=== PATIENT | female | born 1975 | race Caucasian/White ===

== ENCOUNTER 2017-07-28 18:31 | Outpatient (CLI) | payer MEDICAID | END 2017-07-28 18:32 | disposition short-term general hospital (02) | LOC: EMS 18:31 | PROVIDERS: ATTEND Surgery | DX: R73.09 Other abnormal glucose (principal); R11.10 Vomiting, unspecified | CPT/HCPCS: A0425; A0427 ==

== ENCOUNTER 2017-08-07 06:28 | Outpatient (CLI) | payer MEDICAID | END 2017-08-07 06:29 | disposition critical access hospital (66) | LOC: EMS 06:28 | PROVIDERS: ATTEND Surgery | DX: R53.1 Weakness (principal); R10.9 Unspecified abdominal pain | CPT/HCPCS: A0425; A0427 ==

== ENCOUNTER 2017-08-07 06:47 | Inpatient (IN) | payer MEDICAID ==
[2017-08-07] MEDS ORDERED: ONDANSETRON 4 MG/2 ML VIAL IVP STA (06:53)
[2017-08-07] MEDS ORDERED: SODIUM CHLORIDE 0.9% 1,000 ML IV ONE ×3 (06:53→09:00)
[2017-08-07 07:04] LABS: VBG PH 6.821 (7.31-7.41)
[2017-08-07 07:05] LABS: VBG BASE EXCESS -29.8 mmol/L (-2 - +2); VBG PCO2 24.8 mmHg (41-51); VBG PO2 60.3 mmHg (25-47); VBG TOTAL CO2 4.7 mmol/L (24-29)
[2017-08-07 07:18] LABS: BASOPHILS % (AUTO) 0.7 %; EOSINOPHILS % (AUTO) 0.1 %; LYMPHOCYTES % (AUTO) 10.9 %; MEAN CORPUSCULAR HEMOGLOBIN 33.7 pg (27.0-31.0); MEAN CORPUSCULAR VOLUME 112.2 fL (81.0-99.0); MEAN PLATELET VOLUME 7.5 fL (7.9-10.8); MONOCYTES % (AUTO) 11.7 %; NEUTROPHILS % (AUTO) 76.6 %; PLT - PLATELET COUNT 333 10^3/uL (130-450); RED BLOOD COUNT 4.15 10^6/uL (4.20-5.40); RED CELL DISTRIBUTION WIDTH 16.8 % (12.0-15.0); WHITE BLOOD COUNT 13.9 x10^3/uL (4.8-10.8)
[2017-08-07 07:23] LABS: ABNORMAL LYMPHS % (MANUAL) 0 %
[2017-08-07 07:30] LABS: ALBUMIN 4.5 g/dL (3.2-5.5); ALBUMIN/GLOBULIN RATIO 1.5 (1.0-2.2); ALKALINE PHOSPHATASE 122 IU/L (42-121); ALT ALANINE AMINOTRANSFERASE 40 IU/L (10-60); AST ASPARTATE AMINOTRANSFERASE 49 IU/L (10-42); BILIRUBIN,TOTAL 1.4 mg/dL (0.2-1.0); BUN - BLOOD UREA NITROGEN 20 mg/dL (6-20); CARBON DIOXIDE - CO2 < 6 mmol/L (21-32); CHLORIDE 103 mmol/L (101-111); CREATININE 1.2 mg/dL (0.4-1.0); GFR - MDRD 50 (>89); GLUCOSE 571 mg/dL (70-100); LIPASE 22 U/L (22-51); MAGNESIUM 2.4 mg/dL (1.7-2.8); PHOSPHORUS 5.4 mg/dL (2.5-4.6); SODIUM 134 mmol/L (135-145); TOTAL PROTEIN 7.6 g/dL (6.7-8.2)
[2017-08-07 07:31] LABS: BILIRUBIN,URINE NEGATIVE (NEGATIVE); GLUCOSE, URINE (UA) 500 mg/dL (NEGATIVE); KETONES,URINE (UA) >=80 mg/dL (NEGATIVE); LEUKOCYTE ESTERASE, URINE NEGATIVE (NEGATIVE); NITRITE,URINE NEGATIVE (NEGATIVE); OCCULT BLOOD,URINE TRACE-INTA (NEGATIVE); PH,URINE 5.5 PH (5.0-7.5); PROTEIN,URINE TRACE mg/dL (NEGATIVE); UROBILINOGEN,URINE 0.2 (NORMAL) E.U./dL (NORMAL)
[2017-08-07 07:34] LABS: CLARITY,URINE CLEAR (CLEAR); HCG UR QUAL NEGATIVE
[2017-08-07] MEDS ORDERED: INSULIN REGULAR HUMAN 100 UNIT/1 ML 10 ML MDV IVP STA (07:36)
[2017-08-07] MEDS ORDERED: INSULIN REGULAR HUMAN 100 UNIT in SODIUM CHLORIDE 0.9% 100ML 99 ML IV STA (07:36)
--- NOTE | 2017-08-07 07:37 | ED Physician Documentation ---
History of Present Illness - Stated complaint Stated Complaint: HYPERGLYCEMIA - Chief complaint Chief Complaint: General - Additonal information Additional information: hx from pt 42 f IDDM with hx DKA visiting locally and not taking her insulin as prescribed because she states the pharmacy will not fill it to ER with weakness NV and high blood sugar denies recent illness otherwise - no fever cough urinary sx etc denies preg no skin sores Review of Systems Constitutional: denies: Fever, Chills Cardiac: denies: Chest pain / pressure Respiratory: denies: Dyspnea, Cough GI: reports: Nausea, Vomiting : denies: Dysuria, Now EGA Skin: denies: Lesions Neurologic: reports: Generalized weakness PD PAST MEDICAL HISTORY - Past Medical History Endocrine/Autoimmune: Type 1 diabetes - Past Surgical History Past Surgical History: Yes General: 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 - Present Medications Home Medications: Ambulatory Orders Medication Instructions Recorded Confirmed Insulin Glargine [Lantus Solostar] 17 units SUBQ DAILY 08/07/17 08/07/17 Insulin Lispro [Humalog] 2 - 8 units SUBQ TIDWM 08/07/17 08/07/17 - Allergies Allergies/Adverse Reactions: Allergies Allergy/AdvReac Type Severity Reaction Status Date / Time No Known Drug Allergies Allergy Verified 08/07/17 06:54 - Social History Does the pt smoke?: Yes Smoking Status: Current every day smoker Does the pt drink ETOH?: No Does the pt have substance abuse?: No - Immunizations Immunizations are current?: Yes PD ED PE NORMAL - Vitals Vital signs reviewed: Yes - General General: Alert and oriented X 3, Other (thin) - HEENT HEENT: Other (dry, ketotic breath,) - Neck Neck: Supple, no meningeal sign - Cardiac Cardiac: RRR (tachy) - Respiratory Respiratory: No respiratory distress, Clear bilaterally - Abdomen Abdomen: Soft, Non tender - Derm Derm: Normal color - Extremities Extremities: Other (no foot ulcers, bandaid to each heel but no underlying open sore) - Neuro Neuro: Alert and oriented X 3 Results - Vitals Vitals: Vital Signs - 24 hr 08/07/17 08/07/17 06:50 07:47 Temperature 36.1 C L Heart Rate 107 H 118 H Respiratory 20 24 Rate Blood Pressure 157/77 H 159/71 H O2 Saturation 100 100 Oxygen O2 Source Room air - Labs Labs: Laboratory Tests 08/07/17 08/07/17 08/07/17 07:00 07:00 07:00 WBC 13.9 H RBC 4.15 L Hgb 14.0 Hct 46.6 MCV 112.2 H MCH 33.7 H MCHC 30.0 L RDW 16.8 H Plt Count 333 MPV 7.5 L Neut # Not Reportable Lymph # Not Reportable [place] # Not Reportable Eos # Not Reportable Baso # Not Reportable Absolute Nucleated RBC Not Reportable Total Counted 100 Band Neuts % (Manual) 4 Abnorm Lymph % (Manual) 0 Nucleated RBC % Not Reportable Neutrophils # (Manual) 11.4 H Lymphocytes # (Manual) 1.7 Monocytes # (Manual) 0.8 Eosinophils # (Manual) 0.0 Basophils # (Manual) 0.0 Differential Comment MANUAL DIFFERENTIAL Platelet Estimate NORMAL (130-450,000) RBC Morph Micro Appear 2+ MACROCYTOSIS VBG pH VBG pCO2 VBG pO2 VBG HCO3 VBG Total CO2 VBG O2 Saturation VBG Base Excess Sodium 134 L Potassium 5.3 H Chloride 103 Carbon Dioxide < 6 L* Anion Gap 26.0 H BUN 20 Creatinine 1.2 H Estimated GFR (MDRD) 50 L Glucose 571 H* Glycated Hemoglobin Estim Average Glucose Calcium 8.0 L Phosphorus 5.4 H Magnesium 2.4 Total Bilirubin 1.4 H AST 49 H ALT 40 Alkaline Phosphatase 122 H Troponin I < 0.04 Total Protein 7.6 Albumin 4.5 Globulin 3.1 Albumin/Globulin Ratio 1.5 Lipase 22 Urine Color Urine Clarity Urine pH Ur Specific [place] Urine Protein Urine Glucose (UA) Urine Ketones Urine Occult Blood Urine Nitrite Urine Bilirubin Urine Urobilinogen Ur Leukocyte Esterase Ur Microscopic Review Urine Culture Comments Urine HCG, Qual Serum Ketones MODERATE H 08/07/17 08/07/17 08/07/17 07:00 07:00 07:17 WBC RBC Hgb Hct MCV MCH MCHC RDW Plt Count MPV Neut # Lymph # [place] # Eos # Baso # Absolute Nucleated RBC Total Counted Band Neuts % (Manual) Abnorm Lymph % (Manual) Nucleated RBC % Neutrophils # (Manual) Lymphocytes # (Manual) Monocytes # (Manual) Eosinophils # (Manual) Basophils # (Manual) Differential Comment Platelet Estimate RBC Morph Micro Appear VBG pH 6.821 L VBG pCO2 24.8 L VBG pO2 60.3 H VBG HCO3 4.0 L VBG Total CO2 4.7 L VBG O2 Saturation 78.4 VBG Base Excess -29.8 L Sodium Potassium Chloride Carbon Dioxide Anion Gap BUN Creatinine Estimated GFR (MDRD) Glucose Glycated Hemoglobin 13.0 H Estim Average Glucose 326 H Calcium Phosphorus Magnesium Total Bilirubin AST ALT Alkaline Phosphatase Troponin I Total Protein Albumin Globulin Albumin/Globulin Ratio Lipase Urine Color YELLOW Urine Clarity CLEAR Urine pH 5.5 Ur Specific [place] 1.025 Urine Protein TRACE Urine Glucose (UA) 500 H Urine Ketones >=80 H Urine Occult Blood TRACE-INTA Urine Nitrite NEGATIVE Urine Bilirubin NEGATIVE Urine Urobilinogen 0.2 (NORMAL) Ur Leukocyte Esterase NEGATIVE Ur Microscopic Review NOT INDICATED Urine Culture Comments NOT INDICATED Urine HCG, Qual NEGATIVE Serum Ketones PD MEDICAL DECISION MAKING - ED course ED course: profound DKA sound slike trigger is not taking insulin 2/2 not able to get rx filled given IVF insulin bolus indulin gtt will admit to ICU spoke to Dr Gomez at 755 AM Departure - Departure Disposition: 66 [facility] DC/Xfer Clinical Impression: DKA, type 1 Qualifiers: Diabetes mellitus complication detail: without coma Qualified Code(s): E10.10 - Type 1 diabetes mellitus with ketoacidosis without coma Condition: Serious Discharge Date/Time: 08/07/17 09:08
[2017-08-07 07:40] LABS: KETONES, SERUM (ACETEST) MODERATE (NEGATIVE)
[2017-08-07 07:41] LABS: BAND NEUTROPHILS % (MANUAL) 4 %; LYMPHOCYTES # (MANUAL) 1.7 10^3/uL (1.5-3.5); LYMPHOCYTES % (MANUAL) 12 %; MONOCYTES # (MANUAL) 0.8 10^3/uL (0.0-1.0); NEUTROPHILS # (MANUAL) 11.4 10^3/uL (1.5-6.6); NEUTROPHILS % (MANUAL) 78 %
[2017-08-07 07:44] LABS: PLATELET ESTIMATE, MANUAL NORMAL (130-450,000) (NORMAL)
[2017-08-07 07:45] LABS: DIFFERENTIAL COMMENT MANUAL DIFFERENTIAL
[2017-08-07] MEDS ORDERED: ACETAMINOPHEN 325 MG TABLET PO PRN (07:50)
[2017-08-07] MEDS ORDERED: HYDROcod/ACETAM 5/325 MG TABLET PO PRN (07:50)
[2017-08-07] MEDS ORDERED: ZOLPIDEM 5 MG TABLET PO PRN (07:50)
[2017-08-07] MEDS ORDERED: NS W/20 MEQ KCL 1,000 ML IV SCH (08:00)
[2017-08-07 08:23] LABS: HB2 TOTAL 15.1 g/dL; HEMOGLOBIN A1C 1.79 g/dL
[2017-08-07 08:36] LABS: MAGNESIUM 2.1 mg/dL (1.7-2.8)
[2017-08-07] MEDS ORDERED: INSULIN REGULAR HUMAN 100 UNIT in SODIUM CHLORIDE 0.9% 100ML 99 ML IV SCH ×2 (09:00→21:00)
[2017-08-07 09:37] LABS: BUN - BLOOD UREA NITROGEN 18 mg/dL (6-20); CALCIUM 7.1 mg/dL (8.5-10.3); CHLORIDE 112 mmol/L (101-111); CREATININE 1.1 mg/dL (0.4-1.0); GFR - MDRD 55 (>89); GLUCOSE 409 mg/dL (70-100); MAGNESIUM 2.1 mg/dL (1.7-2.8); SODIUM 137 mmol/L (135-145)
[2017-08-07 09:38] LABS: CARBON DIOXIDE - CO2 < 6 mmol/L (21-32)
[2017-08-07] MEDS: ONDANSETRON 4 MG/2 ML VIAL IVP PRN (09:39)
[2017-08-07 10:28] LABS: BUN - BLOOD UREA NITROGEN 19 mg/dL (6-20); CALCIUM 7.3 mg/dL (8.5-10.3); CHLORIDE 112 mmol/L (101-111); GFR - MDRD 61 (>89); GLUCOSE 335 mg/dL (70-100); MAGNESIUM 2.1 mg/dL (1.7-2.8); SODIUM 138 mmol/L (135-145)
[2017-08-07 10:29] LABS: CARBON DIOXIDE - CO2 6 mmol/L (21-32)
[2017-08-07 10:35] LABS: KETONES, SERUM (ACETEST) MODERATE (NEGATIVE)
[2017-08-07] MEDS: ENOXAPARIN 40 MG/0.4 ML SYRINGE SUBQ SCH (11:10)
[2017-08-07] MEDS: FAMOTIDINE 20 MG TABLET PO SCH (11:10)
[2017-08-07] MEDS ORDERED: D5.45NS W/20 MEQ KCL 1,000 ML IV ONE (12:22)
[2017-08-07 12:29] LABS: CALCIUM 7.5 mg/dL (8.5-10.3)
[2017-08-07] MEDS: SODIUM CHLORIDE FLUSH 0.9% 10 ML SYRINGE IVP SCH ×2 (14:04→20:18)
[2017-08-07] MEDS: D5.45NS W/20 MEQ KCL 1,000 ML IV SCH ×2 (14:05→19:36)
[2017-08-07] MEDS: HYDROcod/ACETAM 10 MG/325 MG TABLET PO PRN ×2 (14:08→19:39)
[2017-08-07 15:38] LABS: BUN - BLOOD UREA NITROGEN 13 mg/dL (6-20); CALCIUM 7.8 mg/dL (8.5-10.3); CARBON DIOXIDE - CO2 11 mmol/L (21-32); CHLORIDE 115 mmol/L (101-111); CREATININE 0.8 mg/dL (0.4-1.0); GFR - MDRD 79 (>89); GLUCOSE 122 mg/dL (70-100); SODIUM 138 mmol/L (135-145)
[2017-08-07 15:41] LABS: VBG PH 7.23 (7.31-7.41)
[2017-08-07] MEDS: INSULIN GLARGINE 300 UNIT/3 ML PEN SUBQ SCH (16:09)
[2017-08-07] MEDS: INSULIN ASPART 300 UNIT/3 ML PEN SUBQ SCH ×2 (17:07→20:17)
[2017-08-07 20:27] LABS: BUN - BLOOD UREA NITROGEN 12 mg/dL (6-20); CALCIUM 7.8 mg/dL (8.5-10.3); CARBON DIOXIDE - CO2 7 mmol/L (21-32); CHLORIDE 109 mmol/L (101-111); GFR - MDRD 61 (>89); GLUCOSE 332 mg/dL (70-100); SODIUM 134 mmol/L (135-145)
[2017-08-07 20:29] LABS: VBG PH 7.054 (7.31-7.41)
--- NOTE | 2017-08-08 02:04 | Ultrasound Preliminary Report ---
Exam: US ABDOMEN LIMITED IMPRESSION: 1. Previous cholecystectomy. 2. No biliary ductal dilatation. 3. Small nonobstructing right renal stone. [facility] SITE ID: [id number]
--- NOTE | 2017-08-08 02:09 | Ultrasound Report ---
EXAM: ABDOMEN ULTRASOUND LIMITED, RUQ EXAM DATE: 08/08/2017 01:52 AM. CLINICAL HISTORY: Right upper quadrant tenderness and elevated liver function tests. COMPARISON: None. TECHNIQUE: Real-time scanning was performed with static images obtained. FINDINGS: Liver: Normal in size and echotexture. Main portal vein flow: Hepatopetal. Gallbladder: Removed. Biliary System: CBD measures 3 mm. No intrahepatic or extrahepatic ductal dilatation. Other: Incidental 5 mm nonobstructing right renal stone. No hydronephrosis. Pancreas appears unremark able where seen. IMPRESSION: 1. Previous cholecystectomy. 2. No biliary ductal dilatation. 3. Small nonobstructing right renal stone. [facility] Referring Provider Line: [phone] SITE ID: [id number]
[2017-08-08] MEDS: D5.45NS W/20 MEQ KCL 1,000 ML IV SCH (02:19)
[2017-08-08 02:20] LABS: ALBUMIN 3.8 g/dL (3.2-5.5); ALBUMIN/GLOBULIN RATIO 1.2 (1.0-2.2); BILIRUBIN,TOTAL 2.9 mg/dL (0.2-1.0); CALCIUM 8.1 mg/dL (8.5-10.3); PHOSPHORUS 1.8 mg/dL (2.5-4.6); TOTAL PROTEIN 6.9 g/dL (6.7-8.2)
[2017-08-08] MEDS ORDERED: INSULIN ASPART 300 UNIT/3 ML PEN SUBQ SCH ×2 (02:25→12:00)
[2017-08-08] MEDS: SODIUM CHLORIDE FLUSH 0.9% 10 ML SYRINGE IVP SCH ×4 (02:36→20:49)
[2017-08-08 02:42] LABS: HB2 TOTAL 13.8 g/dL; HEMOGLOBIN A1C 1.58 g/dL; HEMOGLOBIN A1C % 12.6 % (4.6-6.2)
[2017-08-08] MEDS ORDERED: INSULIN REGULAR HUMAN 100 UNIT in SODIUM CHLORIDE 0.9% 100ML 99 ML IV SCH (04:00)
[2017-08-08] MEDS ORDERED: INSULIN REGULAR HUMAN 100 UNIT/1 ML 10 ML MDV ONE (04:13)
[2017-08-08] MEDS ORDERED: SODIUM CHLORIDE 0.9% 500 ML IV ONE (04:34)
[2017-08-08] MEDS: HYDROcod/ACETAM 10 MG/325 MG TABLET PO PRN (04:40)
[2017-08-08 06:47] LABS: ALBUMIN 3.5 g/dL (3.2-5.5); ALBUMIN/GLOBULIN RATIO 1.3 (1.0-2.2); BILIRUBIN,TOTAL 0.9 mg/dL (0.2-1.0); CALCIUM 8.1 mg/dL (8.5-10.3); CREATININE 0.9 mg/dL (0.4-1.0); TOTAL PROTEIN 6.1 g/dL (6.7-8.2)
[2017-08-08] MEDS: ONDANSETRON 4 MG/2 ML VIAL IVP PRN ×2 (07:43→17:29)
[2017-08-08 09:00] LABS: BASOPHILS # (AUTO) 0.1 10^3/uL (0.0-0.1); BASOPHILS % (AUTO) 0.7 %; EOSINOPHILS % (AUTO) 0.2 %; LYMPHOCYTES # (AUTO) 1.5 10^3/uL (1.5-3.5); LYMPHOCYTES % (AUTO) 11.3 %; MEAN CORPUSCULAR HEMOGLOBIN 33.3 pg (27.0-31.0); MEAN CORPUSCULAR HGB CONC 31.8 g/dL (32.0-36.0); MEAN CORPUSCULAR VOLUME 104.8 fL (81.0-99.0); MEAN PLATELET VOLUME 7.9 fL (7.9-10.8); MONOCYTES # (AUTO) 2.1 10^3/uL (0.0-1.0); MONOCYTES % (AUTO) 15.4 %; NEUTROPHILS # (AUTO) 9.7 10^3/uL (1.5-6.6); NEUTROPHILS % (AUTO) 72.4 %; PLT - PLATELET COUNT 279 10^3/uL (130-450); RED BLOOD COUNT 3.88 10^6/uL (4.20-5.40); RED CELL DISTRIBUTION WIDTH 16.3 % (12.0-15.0); WHITE BLOOD COUNT 13.4 x10^3/uL (4.8-10.8)
[2017-08-08] MEDS ORDERED: INSULIN GLARGINE 300 UNIT/3 ML PEN SUBQ SCH (09:00)
[2017-08-08] MEDS: INSULIN ASPART 300 UNIT/3 ML PEN SUBQ SCH ×4 (09:10→20:48)
[2017-08-08] MEDS: NEUTRA-PHOS 250 MG TABLET PO SCH ×2 (09:11→09:22)
[2017-08-08] MEDS: INSULIN GLARGINE 300 UNIT/3 ML PEN SUBQ SCH (09:11)
[2017-08-08] MEDS: MORPHINE 2 MG/ML SYRINGE IVP PRN ×3 (09:13→17:30)
[2017-08-08] MEDS: SODIUM CHLORIDE FLUSH 0.9% 10 ML SYRINGE IVP PRN ×3 (09:13→17:42)
[2017-08-08] MEDS ORDERED: D5.45NS W/20 MEQ KCL 1,000 ML IV SCH (10:00)
--- NOTE | 2017-08-08 10:07 | XRAY Report ---
DATE OF SERVICE: FRONTAL ABDOMEN: 08/08/2017 COMPARISON: None. INDICATION: Abdominal pain. TECHNIQUE: Supine view of the abdomen. FINDINGS: Likely cholecystectomy clip. No dilated loops of bowel. No obvious free air on supine views. No abnormal calcifications. Small to moderate stool burden. IMPRESSION: NO ACUTE ABDOMINAL FINDINGS. TD: 08/08/2017 11:01 [facility]ITALFransico
[2017-08-08 10:22] LABS: DIFFERENTIAL COMMENT MANUAL=AUTO DIFF; PLATELET ESTIMATE, MANUAL NORMAL (130-450,000) (NORMAL); RBC MORPHOLOGY (MULTIPLE) NORMAL APPEARANCE (NORMAL)
[2017-08-08] MEDS: PROCHLORPERAZINE 10 MG/2 ML VIAL IVP PRN ×2 (10:57→11:30)
[2017-08-08] MEDS: ENOXAPARIN 40 MG/0.4 ML SYRINGE SUBQ SCH ×2 (10:57→11:03)
[2017-08-08] MEDS: FAMOTIDINE 20 MG TABLET PO SCH (11:00)
[2017-08-08 11:03] LABS: FOLATE 10.1 ng/mL (5.90 - >24.8)
[2017-08-08] MEDS ORDERED: FAMOTIDINE 20 MG in SODIUM CHLORIDE 0.9% 50 ML IV SCH (13:00)
[2017-08-08] MEDS ORDERED: POTASSIUM PHOSPHATE 15 MMOL in SODIUM CHLORIDE 0.9% 250 ML IV ONE (13:30)
[2017-08-08] MEDS: FAMOTIDINE 20 MG/50 ML 50 ML IV SCH ×2 (13:33→20:49)
--- NOTE | 2017-08-08 15:14 | HISTORY & PHYSICAL EXAMINATION ---
Chief Complaint - Chief Complaint Chief Complaint: Nausea and vomiting History of Present Illness - Admitted From Admitted From:: Emergency department - History Obtained From Records Reviewed: Yes History obtained from: Patient Exam Limitations: None - History of Present Illness HPI Comment/Other: Patient is a 42-year-old female with a past medical history significant for type 1 diabetes diagnosed 10 years ago on insulin, chronic back pain and peripheral neuropathy of her right big toe who presents to the emergency department with a chief complaint of nausea and vomiting. The patient states that she moved to [facility] about 8 months ago and does not have a primary care physician. She states that she ran out of her insulin in May and due to insurance issues has not been able to refill her insulin supply. She states that she was managing fine until when she was admitted to [facility] for diabetic ketoacidosis and treated for 1 day and then discharged. The patient states that she was given prescriptions at [facility] and given Humalog and Lantus 10 which she has been using to take insulin daily. She states that she just ran out of her Lantus today but prior to that was taking all her doses. She states that she was in her normal state of health until yesterday late at night when she began feeling nauseated and had several episodes of vomiting. 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 She states that a friend of hers drove her home and she checked her blood glucose which was over 500 and because she could not get her vomiting to stop she came into the emergency department. Patient denies any fevers, chills, shortness of air, orthopnea, PND, chest pain , sore throat, body aches, nasal congestion, difficulty swallowing, urinary urgency, urinary frequency, dysuria, joint pain, joint swelling, back pain, neck stiffness, recent unintentional weight loss, night sweats, changes in her appetite. The patient also denies any focal neurologic deficits. The patient does admit to probably Josr and polyuria over the last 24 hours. She also admits to abdominal pain as well as pain in her left lower rib cage secondary to dry heaving. She states that she does have chronic back pain. On presentation to the emergency department the patient was afebrile she was tachycardic with heart rate up to 118, she was hypertensive, tachypneic and saturating well on room air. The patient underwent routine lab tests which revealed that she had a bicarb of less than 6, anion gap of 26, glucose of 571, pH of 6.82 and positive serum ketones all consistent with diabetic ketoacidosis. The patient was also found to have slight elevation in her bilirubin and AST and alk phos. The patient's troponin was negative and her hemoglobin A1c was found to be 13.0. The patient had mildly elevated creatinine of 1.2 and appeared to be quite dry on examination. Patient was given several liters of IV fluid and started on an insulin drip in the emergency department after receiving 6 units of IV insulin. The patient was admitted to the intensive care unit with diabetic ketoacidosis. 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 She works at [employer]. She has 2 children one who is 18 years old and one that is 20 years old. She is originally from [facility] and moved to [facility] 8 months ago. She plans to move to [place] in a few months as she dislikes it on [facility]. She does not have a primary care physician. She drinks alcohol once a month. She smokes 1 pack a day and has been doing so for nearly 30 years. She denies any illicit drug use. - POLST Patient has POLST: No POLST Status: Full Code Meds/Allgy - Home Medications Home Medications: Ambulatory Orders Medication Instructions Recorded Confirmed Insulin Glargine [Lantus Solostar] 17 units SUBQ DAILY 08/07/17 08/07/17 Insulin Lispro [Humalog] 2 - 8 units SUBQ TIDWM 08/07/17 08/07/17 - Allergies Allergies/Adverse Reactions: Allergies Allergy/AdvReac Type Severity Reaction Status Date / Time No Known Drug Allergies Allergy Verified 08/07/17 06:54 Review of Systems - Other Findings Other Findings: A comprehensive review of systems was performed the pertinent positives and negatives are stated above in the HPI and the remainder of the review of systems is negative. Exam - Vital Signs Reviewed Vital Signs: Yes Vital Signs: Vital Signs x48h Temp Pulse Resp BP Pulse Ox 08/08/17 14:00 98.2 C H 82 12 124/72 98 08/08/17 13:17 95 15 133/72 H 08/08/17 12:15 101 H 134/68 H 08/08/17 11:00 98.4 C H 94 18 127/69 98 08/08/17 10:00 98.7 C H 97 15 110/51 L 97 08/08/17 09:00 98.6 C H 96 18 115/66 97 08/08/17 08:00 98.4 C H 100 20 122/70 96 - Physical Exam General Appearance: positive: Alert, Moderate distress (Patient is tachypneic, appears to be ill and is in significant pain) Eyes Bilateral: positive: Normal inspection, PERRL, EOMI, No lid inflammation, Conjunctivae nml, No scleral icterus ENT: positive: ENT inspection nml, Pharynx nml, Dry mucous membranes. negative : Purulent nasal drainage, Pharyngeal erythema, Oral lesions Neck: positive: Nml inspection, Thyroid nml, No JVD, Trachea midline. negative : Thyromegaly, Lymphadenopathy (R), Lymphadenopathy (L), Carotid bruit, Tracheal deviation Respiratory: positive: Chest non-tender, No respiratory distress, Breath sounds nml. negative: Wheezes, Rales, Rhonchi Cardiovascular: positive: No murmur, No gallop, Tachycardia Peripheral Pulses: positive: 2+ Abdomen: positive: No organomegaly, Nml bowel sounds, No distention, Tenderness (Mostly in the right upper quadrant), Guarding (Voluntary). negative: Rebound, Hepatomegaly Back: positive: Nml inspection. negative: CVA tenderness (R), CVA tenderness (L ) Skin: positive: Color nml, No rash, Warm, Dry. negative: Cyanosis, Pallor Extremities: positive: Non-tender, Full ROM, Nml appearance, No pedal edema Neurologic/Psychiatric: positive: Oriented x3, CN's nml (2-12), Motor nml, Sensation nml, Mood/affect nml Conclusion/Plan - Problem List (1) DKA (diabetic ketoacidoses) Conclusion/Plan: Patient presented to the emergency department with intractable nausea and vomiting found to be in diabetic ketoacidosis. Patient had recent hospitalization at [facility] just 1 week ago with DKA and was discharged with insulin pens which she states that she has been using. The cause of patient's DKA is likely secondary to poor compliance with medication and diet however the patient states that she has been compliant. The patient could also have viral or bacterial gastroenteritis that could have caused her to go into DKA. The patient does have abdominal pain and has been having intractable nausea and vomiting. She also has an elevated white blood cell count. The patient's hemoglobin A1c is over 13 Plan: Patient will be admitted to the intensive care unit Patient will be placed on DKA protocol Patient will be given IV fluids We will monitor patient's blood glucose BMP every 2 hours Once patient's anion gap closes she will be placed on subq sliding scale insulin and home dose of Lantus Diabetic education Qualifiers: Diabetes mellitus type: type 1 Diabetes mellitus complication detail: without coma Qualified Code(s): E10.10 - Type 1 diabetes mellitus with ketoacidosis without coma (2) Gastroenteritis Conclusion/Plan: Patient presented with intractable nausea vomiting and abdominal pain. The patient does not have any diarrhea. The vomiting may be secondary to the DKA. The patient however states that she has been compliant with her medications and diet. It is possible the patient may have viral or bacterial gastroenteritis given her abdominal pain, tenderness and elevated leukocytosis. The patient also has elevated LFTs We will get an abdominal ultrasound and continue to monitor patient for any worsening pain We will give the patient Vicodin for pain control and antiemetics IV for nausea control (3) Elevated LFTs Conclusion/Plan: Patient does have elevated LFTs in a obstructive type pattern with an elevated bilirubin and alk phos. This is concerning for possible gallstones or possibly cholecystitis that could have caused the patient's DKA. Plan: Monitor patient's LFTs Right upper quadrant ultrasound (4) Tobacco abuse Conclusion/Plan: Patient was counseled on need to quit smoking she states that she is aware and has been told by many physicians to quit but that has not deterred her from smoking. Patient was offered a nicotine patch but refused. - Lab Results Lab results reviewed: Yes Fish Bones: 08/08/17 01:52 08/08/17 06:25 Other Lab Results: Laboratory Results WBC 13.4 x10^3/uL (4.8-10.8) H 08/08/17 01:52 RBC 3.88 10^6/uL (4.20-5.40) L 08/08/17 01:52 Hgb 13.0 g/dL (12.0-16.0) 08/08/17 01:52 Hct 40.7 % (37.0-47.0) 08/08/17 01:52 MCV 104.8 fL (81.0-99.0) H 08/08/17 01:52 MCH 33.3 pg (27.0-31.0) H 08/08/17 01:52 MCHC 31.8 g/dL (32.0-36.0) L 08/08/17 01:52 RDW 16.3 % (12.0-15.0) H 08/08/17 01:52 Plt Count 279 10^3/uL (130-450) 08/08/17 01:52 MPV 7.9 fL (7.9-10.8) 08/08/17 01:52 Neut # 9.7 10^3/uL (1.5-6.6) H 08/08/17 01:52 Lymph # 1.5 10^3/uL (1.5-3.5) 08/08/17 01:52 [place] # 2.1 10^3/uL (0.0-1.0) H 08/08/17 01:52 Eos # 0.0 10^3/uL (0.0-0.7) 08/08/17 01:52 Baso # 0.1 10^3/uL (0.0-0.1) 08/08/17 01:52 Absolute Nucleated RBC 0.00 x10^3/uL 08/08/17 01:52 Total Counted 100 08/07/17 07:00 Band Neuts % (Manual) Not Reportable 08/08/17 01:52 Abnorm Lymph % (Manual) Not Reportable 08/08/17 01:52 Nucleated RBC % 0.0 /100WBC 08/08/17 01:52 Neutrophils # (Manual) Not Reportable 08/08/17 01:52 Lymphocytes # (Manual) Not Reportable 08/08/17 01:52 Monocytes # (Manual) Not Reportable 08/08/17 01:52 Eosinophils # (Manual) Not Reportable 08/08/17 01:52 Basophils # (Manual) Not Reportable 08/08/17 01:52 Differential Comment MANUAL=AUTO DIFF 08/08/17 01:52 Platelet Estimate NORMAL (130-450,000) (NORMAL) 08/08/17 01:52 RBC Morph Micro Appear 1+ ANISOCYTOSIS (NORMAL) 2+ MACROCYTOSIS (NORMAL) 07:00 RBC Morph Micro Appear NORMAL APPEARANCE (NORMAL) 08/08/17 01:52 VBG pH 7.054 (7.31-7.41) L 08/07/17 20:02 VBG pCO2 24.8 mmHg (41-51) L 08/07/17 07:00 VBG pO2 60.3 mmHg (25-47) H 08/07/17 07:00 VBG HCO3 4.0 mmol/L (23-28) L 08/07/17 07:00 VBG Total CO2 4.7 mmol/L (24-29) L 08/07/17 07:00 VBG O2 Saturation 78.4 % (60-80) 08/07/17 07:00 VBG Base Excess -29.8 mmol/L (-2 - +2) L 08/07/17 07:00 Ionized Calcium 1.21 mmol/L (1.15-1.33) 08/07/17 20:02 Sodium 131 mmol/L (135-145) L 08/08/17 06:25 Potassium 4.1 mmol/L (3.5-5.0) 08/08/17 06:25 Chloride 106 mmol/L (101-111) 08/08/17 06:25 Carbon Dioxide 14 mmol/L (21-32) L 08/08/17 06:25 Anion Gap 11.0 (6-13) 08/08/17 06:25 BUN 7 mg/dL (6-20) 08/08/17 06:25 Creatinine 0.9 mg/dL (0.4-1.0) 08/08/17 06:25 Estimated GFR (MDRD) 69 (>89) L 08/08/17 06:25 Glucose 220 mg/dL (70-100) H 08/08/17 06:25 POC Whole Bld Glucose 154 mg/dL (70 - 100) H 08/08/17 14:11 Glycated Hemoglobin 12.6 % (4.6-6.2) H 08/08/17 01:52 Estim Average Glucose 315 (70-100) H 08/08/17 01:52 Calcium 8.1 mg/dL (8.5-10.3) L 08/08/17 06:25 Ionized Calcium YES 08/07/17 20:02 Phosphorus 1.8 mg/dL (2.5-4.6) L 08/08/17 01:52 Magnesium 2.0 mg/dL (1.7-2.8) 08/08/17 01:52 Total Bilirubin 0.9 mg/dL (0.2-1.0) 08/08/17 06:25 AST 40 IU/L (10-42) 08/08/17 06:25 ALT 30 IU/L (10-60) 08/08/17 06:25 Alkaline Phosphatase 72 IU/L (42-121) 08/08/17 06:25 Troponin I < 0.04 ng/mL (<0.49) 08/08/17 01:52 Total Protein 6.1 g/dL (6.7-8.2) L 08/08/17 06:25 Albumin 3.5 g/dL (3.2-5.5) 08/08/17 06:25 Globulin 2.6 g/dL (2.1-4.2) 08/08/17 06:25 Albumin/Globulin Ratio 1.3 (1.0-2.2) 08/08/17 06:25 Lipase 22 U/L (22-51) 08/07/17 07:00 Vitamin B12 683 pg/mL (180-914) 08/08/17 06:50 Folate 10.10 ng/mL (5.90 - >24.8) 08/08/17 06:50 Urine Color YELLOW 08/07/17 07:17 Urine Clarity CLEAR (CLEAR) 08/07/17 07:17 Urine pH 5.5 PH (5.0-7.5) 08/07/17 07:17 Ur Specific [place] 1.025 (1.002-1.030) 08/07/17 07:17 Urine Protein TRACE mg/dL (NEGATIVE) 08/07/17 07:17 Urine Glucose (UA) 500 mg/dL (NEGATIVE) H 08/07/17 07:17 Urine Ketones >=80 mg/dL (NEGATIVE) H 08/07/17 07:17 Urine Occult Blood TRACE-INTA (NEGATIVE) 08/07/17 07:17 Urine Nitrite NEGATIVE (NEGATIVE) 08/07/17 07:17 Urine Bilirubin NEGATIVE (NEGATIVE) 08/07/17 07:17 Urine Urobilinogen 0.2 (NORMAL) E.U./dL (NORMAL) 08/07/17 07:17 Ur Leukocyte Esterase NEGATIVE (NEGATIVE) 08/07/17 07:17 Ur Microscopic Review NOT INDICATED 08/07/17 07:17 Urine Culture Comments NOT INDICATED 08/07/17 07:17 Urine HCG, Qual NEGATIVE 08/07/17 07:17 Serum Ketones MODERATE (NEGATIVE) H 08/07/17 10:03 Core Measures - Anticipated LOS I expect patient to be DC'd or transferred within 96 hours.: Yes - Issues Hospital Issues and Management Plan: Patient was seen and examined on 08-07-2017 - DVT/VTE - Prophylaxis VTE/DVT Prophylaxis med ordered at admit?: Yes
--- NOTE | 2017-08-08 15:35 | PROVIDER PROGRESS NOTE ---
Assessment/Plan - Problem List (1) DKA (diabetic ketoacidoses) Qualifiers: Diabetes mellitus type: type 1 Diabetes mellitus complication detail: without coma Qualified Code(s): E10.10 - Type 1 diabetes mellitus with ketoacidosis without coma Assessment/Plan: Patient presented to the emergency department with intractable nausea and vomiting found to be in diabetic ketoacidosis. Patient had recent hospitalization at [facility] just 1 week ago with DKA and was discharged with insulin pens which she states that she has been using. The cause of patient's DKA is likely secondary to poor compliance with medication and diet however the patient states that she has been compliant. The patient could also have viral or bacterial gastroenteritis that could have caused her to go into DKA. The patient does have abdominal pain and has been having intractable nausea and vomiting. She also has an elevated white blood cell count. The patient's hemoglobin A1c is over 13 The patient's anion gap closed yesterday evening however we opened up last night. The patient had increasing nausea and vomiting through the evening and into the night. The patient's gap has now closed and blood glucose is in the 200s. Plan: Stop insulin drip Start patient on Lantus 20 units subq daily and sliding scale insulin Place patient on diabetic diet Give patient IV fluids Qualifiers: Diabetes mellitus type: type 1 Diabetes mellitus complication detail: without coma Qualified Code(s): E10.10 - Type 1 diabetes mellitus with ketoacidosis without coma (2) Gastroenteritis Conclusion/Plan: Patient presented with intractable nausea vomiting and abdominal pain. The patient does not have any diarrhea. The vomiting may be secondary to the DKA. The patient however states that she has been compliant with her medications and diet. It is possible the patient may have viral or bacterial gastroenteritis given her abdominal pain, tenderness and elevated leukocytosis. Patient's right upper quadrant ultrasound showed that she had a previous cholecystectomy without any biliary ductal dilation and a small nonobstructing renal stone. Patient was having increasing abdominal pain this morning therefore abdominal x- ray was performed which showed no acute abdominal findings. Patient likely has gastroenteritis and just needs symptomatic management with IV fluids, IV antiemetics and IV pain medication. Patient continues to have leukocytosis (3) Elevated LFTs Conclusion/Plan: Right upper quadrant ultrasound was negative Patient's LFTs have now normalized Patient may have viral gastroenteritis which could have caused elevated LFTs on presentation. (4) Tobacco abuse Conclusion/Plan: Patient was counseled on need to quit smoking she states that she is aware and has been told by many physicians to quit but that has not deterred her from smoking. Patient was offered a nicotine patch but refused. - Current Meds Current Meds: Current Medications Generic Name Dose Route Start Last Admin Trade Name Freq PRN Reason Stop Dose Admin Acetaminophen/Hydrocodone Bitart 1 tab 08/07/17 07:50 08/07/17 09:49 [place] 5/325 PO 1 tab Q4HR PRN Administration Pain 5 to 7 Acetaminophen/Hydrocodone Bitart 1 tab 08/07/17 07:50 08/08/17 04:40 [place] 10 Mg/325 Mg PO 1 tab Q4HR PRN Administration Pain 8 to 10 Enoxaparin Sodium 40 mg 08/07/17 09:00 08/08/17 11:03 Lovenox SUBQ 40 mg DAILY ALIZE Administration Potassium Phosphate 15 mmol/ 255 mls @ 63 mls/hr 08/08/17 13:30 08/08/17 13: 23 Sodium Chloride IV 08/08/17 17:32 63 mls/hr ONCE ONE Administration Protocol Famotidine 50 mls @ 100 mls/hr 08/08/17 13:30 08/08/17 13:33 Pepcid 20 Mg/50 Ml IV 100 mls/hr BID ALIZE Administration Insulin Aspart 1 - 9 unit 08/07/17 17:00 08/08/17 12:46 Novolog SUBQ 3 unit 0800,1200,1700,2100 ALIZE Administration Protocol Insulin Glargine 20 unit 08/07/17 15:50 08/08/17 09:11 Lantus Solostar SUBQ 20 unit DAILY ALIZE Administration Morphine Sulfate 2 mg 08/08/17 08:35 08/08/17 11:30 Morphine IVP 2 mg Q2H PRN Administration PAIN Ondansetron HCl 4 mg 08/07/17 07:50 08/08/17 07:43 Zofran Inj IVP 4 mg Q6HR PRN Administration Nausea / Vomiting Prochlorperazine Edisylate 10 mg 08/07/17 07:50 08/08/17 11:30 Compazine Inj IVP 10 mg Q6HR PRN Administration Nausea / Vomiting Sodium Chloride 10 ml 08/07/17 14:00 08/08/17 02:36 Normal Saline Flush 0.9% IVP 10 ml Q8HR ALIZE Administration Sodium Chloride 10 ml 08/07/17 07:50 08/08/17 12:54 Normal Saline Flush 0.9% IVP 10 ml PRN PRN Administration NEEDED PER PROVIDER ORDERS - Lab Result Lab results reviewed: Yes Fish Bone Diagrams: 08/08/17 01:52 08/08/17 06:25 - Diagnostic Imaging Results Diagnostic Imaging Results: Final report reviewed - Additional Planning Condition/Complexity: Guarded My Orders: My Active Orders 08/07/17 15:44 Blood Glucose Checks - Eating [RC] 0800,1200,1700,2100 08/07/17 15:50 Insulin Glargine [Lantus Solostar] 20 unit SUBQ DAILY 08/07/17 17:00 Insulin Aspart [NovoLOG] 1 - 9 unit SUBQ 0800,1200,1700,2100 08/07/17 Dinner Carb-controlled Diet [DIET] 08/08/17 08:33 Blood Glucose Checks - Eating [RC] 0800,1200,1700,2100 Initiate Hypoglycemia Protocol [RC] .protocol 08/08/17 08:35 Morphine Inj [Morphine] 2 mg IVP Q2H PRN 08/08/17 13:30 Famotidine 20 mg/50 ml [Pepcid 20 mg/50 ml] 50 ml IV BID Potassium Phosphate 15 mmol Sodium Chloride 0.9% [Normal Saline 0.9%] 250 ml IV ONCE 08/09/17 05:00 CBC - COMP BLD CT W/AUTO DIFF [HEME] DAILYLAB 08/10/17 05:00 CBC - COMP BLD CT W/AUTO DIFF [HEME] DAILYLAB 08/11/17 05:00 CBC - COMP BLD CT W/AUTO DIFF [HEME] DAILYLAB Plan Discussed with:: Patient Time Spent: 31-60 minutes Subjective - Subjective Patient Reports: Abdominal Pain (Patient continues to have abdominal pain which is diffuse), Fatigue, Nausea (Patient cant even keep water down) Nursing Reports: No Complaints Objective Vital Signs: Vital Signs - 24 hr 08/07/17 08/07/17 08/07/17 16:00 17:00 18:00 Temperature 37.2 C Heart Rate [ 110 H 110 H 106 H Brachial] Respiratory 16 19 18 Rate Blood Pressure 119/59 L 119/56 L [Left Brachial artery] Blood Pressure 123/61 [Right Brachial artery] O2 Saturation 98 97 98 08/07/17 08/07/17 08/07/17 19:00 21:00 21:28 Temperature 37.3 C Heart Rate [ 108 H 113 H Brachial] Respiratory 18 Rate Blood Pressure 113/50 L 141/42 H [Left Brachial artery] Blood Pressure [Right Brachial artery] O2 Saturation 98 08/07/17 08/07/17 08/08/17 22:00 23:00 00:00 Temperature 37.1 C 37.1 C Heart Rate [ 104 H 103 H 97 Brachial] Respiratory 16 17 16 Rate Blood Pressure [Left Brachial artery] Blood Pressure 131/66 H 115/69 120/62 [Right Brachial artery] O2 Saturation 97 08/08/17 08/08/17 08/08/17 01:00 02:00 03:00 Temperature Heart Rate [ 110 H 118 H 116 H Brachial] Respiratory 17 17 25 H Rate Blood Pressure [Left Brachial artery] Blood Pressure 110/49 L 129/60 126/53 L [Right Brachial artery] O2 Saturation 98 97 08/08/17 08/08/17 08/08/17 04:00 05:00 06:00 Temperature 36.4 C L Heart Rate [ 109 H 104 H 100 Brachial] Respiratory 19 16 15 Rate Blood Pressure [Left Brachial artery] Blood Pressure 146/78 H 121/81 H 122/70 [Right Brachial artery] O2 Saturation 99 99 97 08/08/17 08/08/17 08/08/17 07:00 08:00 09:00 Temperature 98.4 C H 98.6 C H Heart Rate [ 100 100 96 Brachial] Respiratory 14 20 18 Rate Blood Pressure 122/70 115/66 [Left Brachial artery] Blood Pressure 121/72 [Right Brachial artery] O2 Saturation 97 96 97 08/08/17 08/08/17 08/08/17 10:00 11:00 12:15 Temperature 98.7 C H 98.4 C H Heart Rate [ 97 94 101 H Brachial] Respiratory 15 18 Rate Blood Pressure 110/51 L 127/69 134/68 H [Left Brachial artery] Blood Pressure [Right Brachial artery] O2 Saturation 97 98 08/08/17 08/08/17 08/08/17 13:17 14:00 15:10 Temperature 98.2 C H Heart Rate [ 95 82 Brachial] Respiratory 15 12 15 Rate Blood Pressure 133/72 H 124/72 133/76 H [Left Brachial artery] Blood Pressure [Right Brachial artery] O2 Saturation 98 88 L Oxygen O2 Source Room air I&O (Last 24 Hrs): Intake and Output Totals x24h 08/06/17 08/07/17 08/08/17 23:59 23:59 23:59 Intake Total 6173.500 2537.0 Output Total 1 650 Balance 6172.500 1887.0 General: Alert, Oriented x3, Cooperative, Mild distress (Looks ill appearing), Other (Thin) HEENT: Atraumatic, PERRLA, EOMI, Other (Dry mucus membranes) Neck: Supple, No JVD, No thyromegaly, +2 carotid pulse wo bruit, No LAD Lymphatic: no adenopathy Neuro: Alert, Non Focal, CN 2-12 Grossly Intact, Oriented Times 3 Cardiovascular: Normal S1, Normal S2, No murmurs, Other (tachycardic) Respiratory: Chest non-tender, No respiratory distress, Breath sounds nml Abdomen: Soft, Other (Diffuse tenderness, voluntary guarding, normal BS) Extremities: No clubbing, No cyanosis, No edema, Normal pulses Skin: No rashes, No breakdown - Results Results: Laboratory Results WBC 13.4 x10^3/uL (4.8-10.8) H 08/08/17 01:52 RBC 3.88 10^6/uL (4.20-5.40) L 08/08/17 01:52 Hgb 13.0 g/dL (12.0-16.0) 08/08/17 01:52 Hct 40.7 % (37.0-47.0) 08/08/17 01:52 MCV 104.8 fL (81.0-99.0) H 08/08/17 01:52 MCH 33.3 pg (27.0-31.0) H 08/08/17 01:52 MCHC 31.8 g/dL (32.0-36.0) L 08/08/17 01:52 RDW 16.3 % (12.0-15.0) H 08/08/17 01:52 Plt Count 279 10^3/uL (130-450) 08/08/17 01:52 MPV 7.9 fL (7.9-10.8) 08/08/17 01:52 Neut # 9.7 10^3/uL (1.5-6.6) H 08/08/17 01:52 Lymph # 1.5 10^3/uL (1.5-3.5) 08/08/17 01:52 [place] # 2.1 10^3/uL (0.0-1.0) H 08/08/17 01:52 Eos # 0.0 10^3/uL (0.0-0.7) 08/08/17 01:52 Baso # 0.1 10^3/uL (0.0-0.1) 08/08/17 01:52 Absolute Nucleated RBC 0.00 x10^3/uL 08/08/17 01:52 Total Counted 100 08/07/17 07:00 Band Neuts % (Manual) Not Reportable 08/08/17 01:52 Abnorm Lymph % (Manual) Not Reportable 08/08/17 01:52 Nucleated RBC % 0.0 /100WBC 08/08/17 01:52 Neutrophils # (Manual) Not Reportable 08/08/17 01:52 Lymphocytes # (Manual) Not Reportable 08/08/17 01:52 Monocytes # (Manual) Not Reportable 08/08/17 01:52 Eosinophils # (Manual) Not Reportable 08/08/17 01:52 Basophils # (Manual) Not Reportable 08/08/17 01:52 Differential Comment MANUAL=AUTO DIFF 08/08/17 01:52 Platelet Estimate NORMAL (130-450,000) (NORMAL) 08/08/17 01:52 RBC Morph Micro Appear 1+ ANISOCYTOSIS (NORMAL) 2+ MACROCYTOSIS (NORMAL) 07:00 RBC Morph Micro Appear NORMAL APPEARANCE (NORMAL) 08/08/17 01:52 VBG pH 7.054 (7.31-7.41) L 08/07/17 20:02 VBG pCO2 24.8 mmHg (41-51) L 08/07/17 07:00 VBG pO2 60.3 mmHg (25-47) H 08/07/17 07:00 VBG HCO3 4.0 mmol/L (23-28) L 08/07/17 07:00 VBG Total CO2 4.7 mmol/L (24-29) L 08/07/17 07:00 VBG O2 Saturation 78.4 % (60-80) 08/07/17 07:00 VBG Base Excess -29.8 mmol/L (-2 - +2) L 08/07/17 07:00 Ionized Calcium 1.21 mmol/L (1.15-1.33) 08/07/17 20:02 Sodium 131 mmol/L (135-145) L 08/08/17 06:25 Potassium 4.1 mmol/L (3.5-5.0) 08/08/17 06:25 Chloride 106 mmol/L (101-111) 08/08/17 06:25 Carbon Dioxide 14 mmol/L (21-32) L 08/08/17 06:25 Anion Gap 11.0 (6-13) 08/08/17 06:25 BUN 7 mg/dL (6-20) 08/08/17 06:25 Creatinine 0.9 mg/dL (0.4-1.0) 08/08/17 06:25 Estimated GFR (MDRD) 69 (>89) L 08/08/17 06:25 Glucose 220 mg/dL (70-100) H 08/08/17 06:25 POC Whole Bld Glucose 154 mg/dL (70 - 100) H 08/08/17 14:11 Glycated Hemoglobin 12.6 % (4.6-6.2) H 08/08/17 01:52 Estim Average Glucose 315 (70-100) H 08/08/17 01:52 Calcium 8.1 mg/dL (8.5-10.3) L 08/08/17 06:25 Ionized Calcium YES 08/07/17 20:02 Phosphorus 1.8 mg/dL (2.5-4.6) L 08/08/17 01:52 Magnesium 2.0 mg/dL (1.7-2.8) 08/08/17 01:52 Total Bilirubin 0.9 mg/dL (0.2-1.0) 08/08/17 06:25 AST 40 IU/L (10-42) 08/08/17 06:25 ALT 30 IU/L (10-60) 08/08/17 06:25 Alkaline Phosphatase 72 IU/L (42-121) 08/08/17 06:25 Troponin I < 0.04 ng/mL (<0.49) 08/08/17 01:52 Total Protein 6.1 g/dL (6.7-8.2) L 08/08/17 06:25 Albumin 3.5 g/dL (3.2-5.5) 08/08/17 06:25 Globulin 2.6 g/dL (2.1-4.2) 08/08/17 06:25 Albumin/Globulin Ratio 1.3 (1.0-2.2) 08/08/17 06:25 Lipase 22 U/L (22-51) 08/07/17 07:00 Vitamin B12 683 pg/mL (180-914) 08/08/17 06:50 Folate 10.10 ng/mL (5.90 - >24.8) 08/08/17 06:50 Urine Color YELLOW 08/07/17 07:17 Urine Clarity CLEAR (CLEAR) 08/07/17 07:17 Urine pH 5.5 PH (5.0-7.5) 08/07/17 07:17 Ur Specific [place] 1.025 (1.002-1.030) 08/07/17 07:17 Urine Protein TRACE mg/dL (NEGATIVE) 08/07/17 07:17 Urine Glucose (UA) 500 mg/dL (NEGATIVE) H 08/07/17 07:17 Urine Ketones >=80 mg/dL (NEGATIVE) H 08/07/17 07:17 Urine Occult Blood TRACE-INTA (NEGATIVE) 08/07/17 07:17 Urine Nitrite NEGATIVE (NEGATIVE) 08/07/17 07:17 Urine Bilirubin NEGATIVE (NEGATIVE) 08/07/17 07:17 Urine Urobilinogen 0.2 (NORMAL) E.U./dL (NORMAL) 08/07/17 07:17 Ur Leukocyte Esterase NEGATIVE (NEGATIVE) 08/07/17 07:17 Ur Microscopic Review NOT INDICATED 08/07/17 07:17 Urine Culture Comments NOT INDICATED 08/07/17 07:17 Urine HCG, Qual NEGATIVE 08/07/17 07:17 Serum Ketones MODERATE (NEGATIVE) H 08/07/17 10:03
[2017-08-09 05:58] LABS: BASOPHILS # (AUTO) 0.1 10^3/uL (0.0-0.1); BASOPHILS % (AUTO) 1.1 %; EOSINOPHILS % (AUTO) 0.5 %; HGB - HEMOGLOBIN 12.7 g/dL (12.0-16.0); LYMPHOCYTES # (AUTO) 1.1 10^3/uL (1.5-3.5); LYMPHOCYTES % (AUTO) 19.3 %; MEAN CORPUSCULAR HEMOGLOBIN 33.2 pg (27.0-31.0); MEAN CORPUSCULAR HGB CONC 33.4 g/dL (32.0-36.0); MEAN CORPUSCULAR VOLUME 99.6 fL (81.0-99.0); MEAN PLATELET VOLUME 6.9 fL (7.9-10.8); MONOCYTES # (AUTO) 0.7 10^3/uL (0.0-1.0); MONOCYTES % (AUTO) 12.7 %; NEUTROPHILS # (AUTO) 3.7 10^3/uL (1.5-6.6); NEUTROPHILS % (AUTO) 66.4 %; PLT - PLATELET COUNT 224 10^3/uL (130-450); RED BLOOD COUNT 3.83 10^6/uL (4.20-5.40); RED CELL DISTRIBUTION WIDTH 15.3 % (12.0-15.0); WHITE BLOOD COUNT 5.6 x10^3/uL (4.8-10.8)
[2017-08-09] MEDS: SODIUM CHLORIDE FLUSH 0.9% 10 ML SYRINGE IVP SCH ×2 (06:02→13:36)
[2017-08-09 06:20] LABS: ALBUMIN 3.2 g/dL (3.2-5.5); ALBUMIN/GLOBULIN RATIO 1.2 (1.0-2.2); CALCIUM 8.3 mg/dL (8.5-10.3); CREATININE 0.6 mg/dL (0.4-1.0); MAGNESIUM 1.9 mg/dL (1.7-2.8); PHOSPHORUS 1.5 mg/dL (2.5-4.6); TOTAL PROTEIN 5.9 g/dL (6.7-8.2)
[2017-08-09] MEDS ORDERED: POTASSIUM CHLORIDE 20 MEQ TABLET PO ONE (08:00)
[2017-08-09] MEDS ORDERED: POTASSIUM PHOSPHATE 21 MMOL in SODIUM CHLORIDE 0.9% 250 ML IV ONE (08:00)
[2017-08-09] MEDS: INSULIN ASPART 300 UNIT/3 ML PEN SUBQ SCH ×2 (08:30→11:46)
[2017-08-09] MEDS: INSULIN GLARGINE 300 UNIT/3 ML PEN SUBQ SCH (09:00)
[2017-08-09] MEDS: ENOXAPARIN 40 MG/0.4 ML SYRINGE SUBQ SCH (09:01)
[2017-08-09] MEDS: ONDANSETRON 4 MG/2 ML VIAL IVP PRN (10:43)
[2017-08-09] MEDS: HYDROcod/ACETAM 10 MG/325 MG TABLET PO PRN (10:43)
[2017-08-09 12:18] VITALS: BP 125/72
--- NOTE | 2017-08-09 12:29 | Discharge Plan ---
Discharge Plan Disposition: Home, Self Care Condition: Fair Diet: Diabetic Activity Restrictions: Activity as Tolerated Shower Restrictions: No Driving Restrictions: No Weight Bearing: Full Weight Additional Instructions or Follow Up instructions: You presented to emergency department with nausea and vomiting and were found to be in diabetic ketoacidosis. You likely also had a gastroenteritis but your symptoms have now resolved. You were placed on an insulin drip with which your blood sugars became controlled and your DKA resolved. You were then placed back on your home dose of Lantus and a sliding scale of insulin. Your blood glucose has been controlled in the hospital and you are being discharged on her home medication. 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 Our director of casework services has provided you with your Medicaid number so that you can purchase the medications from your pharmacy. Please call and make an appointment with a primary care physician [place] we need to make sure that you are being followed by somebody with your type 1 diabetes. No Smoking: If you smoke, Please STOP! Call for help.
--- NOTE | 2017-08-09 12:34 | DISCHARGE SUMMARY ---
Discharge Summary Admit Date: 08/07/17 Discharge Date: 08/09/17 Discharging Provider: Kennedy Gomez MD Primary Care Provider: None Code Status: Attempt Resuscitation Condition at Discharge: Fair Discharge Disposition: Home, Self Care - DIAGNOSES Admission Diagnoses: 1. Diabetic ketoacidosis 2. Gastroenteritis 3. Elevated LFTs 4. Tobacco abuse Discharge Diagnoses with Status of Each Condition: 1. Diabetic ketoacidosis: Resolved 2. Gastroenteritis: Resolved 3. Elevated LFTs: Improved 4. Tobacco abuse: Stable - HPI History of Present Illness: Patient is a 42-year-old female with a past medical history significant for type 1 diabetes diagnosed 10 years ago on insulin, chronic back pain and peripheral neuropathy of her right big toe who presents to the emergency department with a chief complaint of nausea and vomiting. The patient states that she moved to [facility] about 8 months ago and does not have a primary care physician. She states that she ran out of her insulin in May and due to insurance issues has not been able to refill her insulin supply. She states that she was managing fine until when she was admitted to [facility] for diabetic ketoacidosis and treated for 1 day and then discharged. The patient states that she was given prescriptions at [facility] and given Humalog and Lantus 10 which she has been using to take insulin daily. She states that she just ran out of her Lantus today but prior to that was taking all her doses. She states that she was in her normal state of health until yesterday late at night when she began feeling nauseated and had several episodes of vomiting. 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 She states that a friend of hers drove her home and she checked her blood glucose which was over 500 and because she could not get her vomiting to stop she came into the emergency department. Patient denies any fevers, chills, shortness of air, orthopnea, PND, chest pain , sore throat, body aches, nasal congestion, difficulty swallowing, urinary urgency, urinary frequency, dysuria, joint pain, joint swelling, back pain, neck stiffness, recent unintentional weight loss, night sweats, changes in her appetite. The patient also denies any focal neurologic deficits. The patient does admit to probably Josr and polyuria over the last 24 hours. She also admits to abdominal pain as well as pain in her left lower rib cage secondary to dry heaving. She states that she does have chronic back pain. On presentation to the emergency department the patient was afebrile she was tachycardic with heart rate up to 118, she was hypertensive, tachypneic and saturating well on room air. The patient underwent routine lab tests which revealed that she had a bicarb of less than 6, anion gap of 26, glucose of 571, pH of 6.82 and positive serum ketones all consistent with diabetic ketoacidosis. The patient was also found to have slight elevation in her bilirubin and AST and alk phos. The patient's troponin was negative and her hemoglobin A1c was found to be 13.0. The patient had mildly elevated creatinine of 1.2 and appeared to be quite dry on examination. Patient was given several liters of IV fluid and started on an insulin drip in the emergency department after receiving 6 units of IV insulin. The patient was admitted to the intensive care unit with diabetic ketoacidosis. - HOSPITAL COURSE Hospital Course: Patient was placed on insulin drip and admitted to the intensive care unit over the first 24 hours she initially closed her anion gap and appeared to be out of DKA. However later in the evening the patient's blood sugars began to worsen and she had worsening nausea and vomiting which then led to her going back into DKA she required the insulin drip overnight. The patient now has been out of DKA for greater than 24 hours and her blood glucose is well controlled. The patient previously had issues with getting medication that was prescribed her from her pharmacy. This was due to the fact that she did not have her Medicaid number. The case management provided the patient with her Medicaid number and we ensured that her scripts were still available at [facility] in [place]. The patient will be picking up her insulin once she is discharged from the hospital. The patient was in stable condition at the time of discharge. The patient's gastroenteritis and DKA had resolved. The patient [place] to try to establish a primary care doctor. The patient was also advised on diabetic diet and advised to check her sugars at home. - ALLERGIES Allergies/Adverse Reactions: Allergies Allergy/AdvReac Type Severity Reaction Status Date / Time No Known Drug Allergies Allergy Verified 08/07/17 06:54 - MEDICATIONS Home Medications: Ambulatory Orders Medication Instructions Recorded Confirmed Insulin Glargine [Lantus Solostar] 17 units SUBQ DAILY 08/07/17 08/07/17 Insulin Lispro [Humalog] 2 - 8 units SUBQ TIDWM 08/07/17 08/07/17 - PHYSICAL EXAM AT DISCHARGE General Appearance: positive: No acute distress, Alert Eyes Bilateral: positive: Normal inspection, PERRL, EOMI, No lid inflammation, Conjunctivae nml, No scleral icterus ENT: positive: ENT inspection nml, Pharynx nml, No signs of dehydration. negative: Purulent nasal drainage, Pharyngeal erythema, Oral lesions Neck: positive: Nml inspection, Thyroid nml, No JVD, Trachea midline. negative : Thyromegaly, Lymphadenopathy (R), Lymphadenopathy (L) Respiratory: positive: Chest non-tender, No respiratory distress, Breath sounds nml. negative: Wheezes, Rales, Rhonchi Cardiovascular: positive: Regular rate & rhythm, No murmur, No gallop Peripheral Pulses: positive: 2+ Abdomen: positive: Non-tender, No organomegaly, Nml bowel sounds, No distention. negative: Guarding, Rebound Back: positive: Nml inspection. negative: CVA tenderness (R), CVA tenderness (L ) Skin: positive: Color nml, No rash, Warm. negative: Cyanosis, Diaphoresis Extremities: positive: Non-tender, Full ROM, Nml appearance, No pedal edema Neurologic/Psychiatric: positive: Oriented x3, CN's nml (2-12), Motor nml, Sensation nml, Mood/affect nml - LABS Result Diagrams: 08/09/17 05:31 08/09/17 05:31 Other Lab Results: Laboratory Results WBC 5.6 x10^3/uL (4.8-10.8) 08/09/17 05:31 RBC 3.83 10^6/uL (4.20-5.40) L 08/09/17 05:31 Hgb 12.7 g/dL (12.0-16.0) 08/09/17 05:31 Hct 38.2 % (37.0-47.0) 08/09/17 05:31 MCV 99.6 fL (81.0-99.0) H 08/09/17 05:31 MCH 33.2 pg (27.0-31.0) H 08/09/17 05:31 MCHC 33.4 g/dL (32.0-36.0) 08/09/17 05:31 RDW 15.3 % (12.0-15.0) H 08/09/17 05:31 Plt Count 224 10^3/uL (130-450) 08/09/17 05:31 MPV 6.9 fL (7.9-10.8) L 08/09/17 05:31 Neut # 3.7 10^3/uL (1.5-6.6) 08/09/17 05:31 Lymph # 1.1 10^3/uL (1.5-3.5) L 08/09/17 05:31 Stanton # 0.7 10^3/uL (0.0-1.0) 08/09/17 05:31 Eos # 0.0 10^3/uL (0.0-0.7) 08/09/17 05:31 Baso # 0.1 10^3/uL (0.0-0.1) 08/09/17 05:31 Absolute Nucleated RBC 0.00 x10^3/uL 08/09/17 05:31 Total Counted 100 08/07/17 07:00 Band Neuts % (Manual) Not Reportable 08/08/17 01:52 Abnorm Lymph % (Manual) Not Reportable 08/08/17 01:52 Nucleated RBC % 0.0 /100WBC 08/09/17 05:31 Neutrophils # (Manual) Not Reportable 08/08/17 01:52 Lymphocytes # (Manual) Not Reportable 08/08/17 01:52 Monocytes # (Manual) Not Reportable 08/08/17 01:52 Eosinophils # (Manual) Not Reportable 08/08/17 01:52 Basophils # (Manual) Not Reportable 08/08/17 01:52 Differential Comment MANUAL=AUTO DIFF 08/08/17 01:52 Platelet Estimate NORMAL (130-450,000) (NORMAL) 08/08/17 01:52 RBC Morph Micro Appear 1+ ANISOCYTOSIS (NORMAL) 2+ MACROCYTOSIS (NORMAL) 07:00 RBC Morph Micro Appear NORMAL APPEARANCE (NORMAL) 08/08/17 01:52 VBG pH 7.054 (7.31-7.41) L 08/07/17 20:02 VBG pCO2 24.8 mmHg (41-51) L 08/07/17 07:00 VBG pO2 60.3 mmHg (25-47) H 08/07/17 07:00 VBG HCO3 4.0 mmol/L (23-28) L 08/07/17 07:00 VBG Total CO2 4.7 mmol/L (24-29) L 08/07/17 07:00 VBG O2 Saturation 78.4 % (60-80) 08/07/17 07:00 VBG Base Excess -29.8 mmol/L (-2 - +2) L 08/07/17 07:00 Ionized Calcium 1.21 mmol/L (1.15-1.33) 08/07/17 20:02 Sodium 135 mmol/L (135-145) 08/09/17 05:31 Potassium 3.4 mmol/L (3.5-5.0) L 08/09/17 05:31 Chloride 106 mmol/L (101-111) 08/09/17 05:31 Carbon Dioxide 20 mmol/L (21-32) L 08/09/17 05:31 Anion Gap 9.0 (6-13) 08/09/17 05:31 BUN 8 mg/dL (6-20) 08/09/17 05:31 Creatinine 0.6 mg/dL (0.4-1.0) 08/09/17 05:31 Estimated GFR (MDRD) 110 (>89) 08/09/17 05:31 Glucose 229 mg/dL (70-100) H 08/09/17 05:31 POC Whole Bld Glucose 305 mg/dL (70 - 100) H 08/09/17 11:34 Glycated Hemoglobin 12.6 % (4.6-6.2) H 08/08/17 01:52 Estim Average Glucose 315 (70-100) H 08/08/17 01:52 Calcium 8.3 mg/dL (8.5-10.3) L 08/09/17 05:31 Ionized Calcium YES 08/07/17 20:02 Phosphorus 1.5 mg/dL (2.5-4.6) L 08/09/17 05:31 Magnesium 1.9 mg/dL (1.7-2.8) 08/09/17 05:31 Total Bilirubin 1.0 mg/dL (0.2-1.0) 08/09/17 05:31 AST 96 IU/L (10-42) H 08/09/17 05:31 ALT 55 IU/L (10-60) 08/09/17 05:31 Alkaline Phosphatase 81 IU/L (42-121) 08/09/17 05:31 Troponin I < 0.04 ng/mL (<0.49) 08/08/17 01:52 Total Protein 5.9 g/dL (6.7-8.2) L 08/09/17 05:31 Albumin 3.2 g/dL (3.2-5.5) 08/09/17 05:31 Globulin 2.7 g/dL (2.1-4.2) 08/09/17 05:31 Albumin/Globulin Ratio 1.2 (1.0-2.2) 08/09/17 05:31 Lipase 22 U/L (22-51) 08/07/17 07:00 Vitamin B12 683 pg/mL (180-914) 08/08/17 06:50 Folate 10.10 ng/mL (5.90 - >24.8) 08/08/17 06:50 Urine Color YELLOW 08/07/17 07:17 Urine Clarity CLEAR (CLEAR) 08/07/17 07:17 Urine pH 5.5 PH (5.0-7.5) 08/07/17 07:17 Ur Specific [place] 1.025 (1.002-1.030) 08/07/17 07:17 Urine Protein TRACE mg/dL (NEGATIVE) 08/07/17 07:17 Urine Glucose (UA) 500 mg/dL (NEGATIVE) H 08/07/17 07:17 Urine Ketones >=80 mg/dL (NEGATIVE) H 08/07/17 07:17 Urine Occult Blood TRACE-INTA (NEGATIVE) 08/07/17 07:17 Urine Nitrite NEGATIVE (NEGATIVE) 08/07/17 07:17 Urine Bilirubin NEGATIVE (NEGATIVE) 08/07/17 07:17 Urine Urobilinogen 0.2 (NORMAL) E.U./dL (NORMAL) 08/07/17 07:17 Ur Leukocyte Esterase NEGATIVE (NEGATIVE) 08/07/17 07:17 Ur Microscopic Review NOT INDICATED 08/07/17 07:17 Urine Culture Comments NOT INDICATED 08/07/17 07:17 Urine HCG, Qual NEGATIVE 08/07/17 07:17 Serum Ketones MODERATE (NEGATIVE) H 08/07/17 10:03 - DIAGNOSTIC IMAGING Diagnostic Imaging Results: Final report reviewed Diagnostic Imaging Results Comments: Abdominal ultrasound Impression: 1. Previous cholecystectomy 2. No biliary ductal dilation 3. Small nonobstructing right renal stone Abdominal x-ray Impression: 1. No acute abdominal findings. - FOLLOW UP Follow Up: Please shrimp picker your prescriptions from [facility] pharmacy you have been provided your Medicaid number you can use this to shrimp picker your insulin prescriptions. Please be compliant with your insulin regimen and a diabetic diet. Please monitor your blood sugars at home regularly. Please follow-up with a primary care physician out of the list that was provided to you. - TIME SPENT Time Spent in Discharge (Minutes): 45
[2017-08-09] MEDS: FAMOTIDINE 20 MG/50 ML 50 ML IV SCH (13:30)
== END 2017-08-09 15:30 | disposition home or self-care (01) | DRG 638 ==
LOC: EDUNIT# → ED 06:47 → ICU 07:50
PROVIDERS: ADMIT Internal Medicine; ATTEND Internal Medicine
DX: E10.10 Type 1 diabetes mellitus with ketoacidosis without coma (principal); R17 Unspecified jaundice; K52.9 Noninfective gastroenteritis and colitis, unspecified; R74.8 Abnormal levels of other serum enzymes; R74.0 Nonspecific elevation of levels of transaminase and lactic acid dehydrogenase [LDH]; E10.42 Type 1 diabetes mellitus with diabetic polyneuropathy; G89.29 Other chronic pain; M54.9 Dorsalgia, unspecified; F17.210 Nicotine dependence, cigarettes, uncomplicated; Z79.4 Long term (current) use of insulin
CPT/HCPCS: 36415; 74018; 76705; 80048; 80053; 81001; 81003; 81025; 82009; 82330; 82607; 82746; 82747; 82803; 82947; 83036; 83690; 83735; 84100; 84484; 85025; 87086; 87150; 96361; 96374; 99284